=== PATIENT | male | born 1965 | race Caucasian/White ===

== ENCOUNTER 2022-09-23 10:52 | Day surgery (SDC) | payer BC ==
[2022-09-22 12:01] VITALS: BMI 38.0
[2022-09-23 11:34] VITALS: RESP 18
[2022-09-23] MEDS ORDERED: LIDOCAINE HCL/PF 2% SDV 5ML VIAL ONE (12:44)
[2022-09-23 13:17] VITALS: BP 127/57; PULSE 78; TEMP 97.8
== END 2022-09-23 13:31 | disposition home or self-care (01) ==
LOC: FASU-ENDO 10:52
PROVIDERS: ATTEND Internal Medicine Gastroenterology
PROC: 0DBN8ZX Excision of Sigmoid Colon, Via Natural or Artificial Opening Endoscopic, Diagnostic (ICD-10-PCS; principal; 2022-09-23 12:46)
DX: Z12.11 Encounter for screening for malignant neoplasm of colon (principal); K63.5 Polyp of colon; K64.1 Second degree hemorrhoids
CPT/HCPCS: 82962; 88305-TC